=== PATIENT | female | born 1965 | race Caucasian/White ===

== ENCOUNTER 2021-03-12 17:02 | Emergency (ER) | payer OTHER ==
[~2021-03-12 17:02] MED LIST: ALPRAZOLAM0.5 MG PO; CYCLOBENZAPRINE10 MG PO; CYMBALTA60 MG PO; GABAPENTIN600 MG PO; NORCO 5/3251 EACH PO; XANAX0.5 MG PO
[2021-03-12 17:37] LABS: BASOPHIL 0.7 % (0-2); EOSINOPHIL 2.3 % (0-5); HCT 40.2 % (37.0-47.0); HGB 12.8 g/dl (12.5-16.0); LYMPHOCYTE 29.7 % (15-48); MCH 28.1 pg (25.0-31.0); MCHC 31.8 g/dL (32.0-36.0); MCV 88.2 fL (78.0-100.0); MONOCYTE 7.7 % (0-12); NEUTROPHIL 59.2 % (41-80); NRBC 0; PLT 311 K/uL (150-400); RBC 4.56 M/uL (4.20-5.40); RDW 13.6 % (11.5-14.0); WBC 7.5 K/uL (4.0-10.5)
[2021-03-12 18:12] LABS: BILIRUBIN 1+ mg/dL (NEGATIVE); BLOOD NEGATIVE Ery/uL (NEGATIVE); CLARITY CLEAR (CLEAR); COLOR YELLOW (YELLOW); GLUCOSE (U) NORMAL (NORMAL); LEUKOCYTES NEGATIVE Leu/uL (NEGATIVE); NITRITE NEGATIVE (NEGATIVE); PROTEIN NEGATIVE (NEGATIVE); SPECIFIC GRAVITY >=1.030 (1.001-1.030); UROBILINOGEN 0.2 mg/dL (0.2-1.0)
[2021-03-12 18:17] LABS: ECSTASY (MDMA) NEGATIVE (NEGATIVE); MARIJUANA (THC) NEGATIVE (NEGATIVE); METHADONE NEGATIVE (NEGATIVE); OPIATES POSITIVE (NEGATIVE)
[2021-03-12 18:18] LABS: AMPHETAMINES NEGATIVE (NEGATIVE); BARBITURATES NEGATIVE (NEGATIVE); OXYCODONE POSITIVE (NEGATIVE)
[2021-03-12 18:21] LABS: ACETAMINOPHEN (TYLENOL) < 2.0 ug/mL (10.0-30.0); ALBUMIN 4.1 g/dL (3.4-5.0); ALKALINE PHOSHATASE 153 U/L (46-116); ALT 23 U/L (14-59); AST 15 U/L (15-37); BILIRUBIN - TOTAL 0.3 mg/dL (0.2-1.0); BUN 11 mg/dL (7-18); BUN/CREAT RATIO (CALC) 9.3 RATIO; CHLORIDE 104 mmol/L (98-107); CO2 (BICARBONATE) 28 mmol/L (21-32); CREATININE 1.18 mg/dL (0.51-0.95); GLOBULIN (CALCULATION) 4.2 g/dL; GLUCOSE 122 mg/dL (74-106); POTASSIUM 4.6 mmol/L (3.5-5.1); TOTAL PROTEIN 8.3 g/dL (6.4-8.2)
== END 2021-03-13 08:32 ==
LOC: FER 17:02
PROVIDERS: Emergency Medicine
DX: R45.851 Suicidal ideations (principal); U07.1 COVID-19; F41.9 Anxiety disorder, unspecified; F32.9 Major depressive disorder, single episode, unspecified; E03.9 Hypothyroidism, unspecified; Z79.899 Other long term (current) drug therapy; Z88.2 Allergy status to sulfonamides; Z88.5 Allergy status to narcotic agent
CPT/HCPCS: 36415; 80053; 80305; 81003; 85025; 99285; G0480; U0002